=== PATIENT | female | born 1955 | race Caucasian/White ===

== ENCOUNTER 2019-11-01 23:00 | Emergency (ER) | payer OTHER ==
[~2019-11-01] VITALS: Ht 172.7 cm; Wt 81.0 kg
--- NOTE | 2019-11-01 23:29 | NUR ---
DR.VAN JCAKSON AT BEDSIDE FOR EVAL.
--- NOTE | 2019-11-01 23:44 | NUR ---
PT MEDICATED PER EMAR. AWAITING CT.
--- NOTE | 2019-11-01 23:58 | NUR ---
PT BACK FROM CT.
[2019-11-02 00:03] VITALS: BP 120/63
--- NOTE | 2019-11-02 00:15 | NUR ---
CT RESULTED. PT IS UP FOR RECHECK AT THIS TIME.
--- NOTE | 2019-11-02 00:44 | NUR ---
Patient given discharge instructions and they have confirmed that they understand the instructions. Patient ambulatory with steady gait.
== END 2019-11-02 00:45 | disposition home or self-care (01) ==
LOC: ED 11-02 00:09
DX: R51 Headache (principal)
CPT/HCPCS: 70450; 99284